=== PATIENT | male | born 1945 | race Caucasian/White ===

== ENCOUNTER 2018-07-02 19:49 | Emergency (ER) | payer MEDICARE ==
[2018-07-02] MEDS ORDERED: NS 0.9% 1000 ML* 1,000 ML IV ONE (21:39)
[2018-07-02] MEDS ORDERED: Morphine INJ* 2 MG/ML 1 ML SYRINGE (TWO MG - NEW SYRINGE VERSION) IV ONE (21:39)
[2018-07-02] MEDS ORDERED: Ondansetron INJ* 2 MG/ML VIAL IV ONE (21:39)
--- NOTE | 2018-07-02 21:50 | ED ---
Abdominal Pain/Male - HPI Summary HPI Summary: This is scribe Mir Dunn documenting for attending Pilar Sr MD. This patient is a 72 year old M presenting to [facility] with a chief complaint of left flank pain. He first felt the pain at 03:00 this morning, and the pain lasted for 3 hours. Patient reports feeling the same pain again today at 18:00 and the pain is now still present. The patient rates the pain 6/10 in severity. Patient reports nausea. Patient denies hematuria and difficulty urinating. He has a PMHx of 4 kidney stones. He had a colonoscopy last year which was negative for diverticulitis. He denies a SHx of abdominal surgery. I, Dr. Sr, personally performed the services described in this documentation as scribed in my presence and it is both accurate and complete. - History of Current Complaint Chief Complaint: EDFlankPain Stated Complaint: LT SIDE FLANK PAIN Time Seen by Provider: 07/02/18 21:34 Hx Obtained From: Patient Onset/Duration: Sudden Onset, Lasting Hours - 3 hours from 03:00-06:00. A second episdoe from 18:00 to present., Still Present Timing: Intermittent - Two episodes: one starting at 03:00 and one starting at 18:00., Lasting Hours - The last episode lasted 3 hours. The current episode has been ongoing for 3 and a half hours. Severity Initially: Moderate Severity Currently: Moderate Pain Intensity: 6 Pain Scale Used: 0-10 Numeric Location: Flank - L flank Associated Signs And Symptoms: Positive: Nausea. Negative: Urinary Symptoms - Denies hematuria. Denies difficulty urinating. - Allergies/Home Medications Allergies/Adverse Reactions: Allergies Allergy/AdvReac Type Severity Reaction Status Date / Time No Known Allergies Allergy Verified 07/02/18 19:53 Home Medications: Home Medications Allopurinol TAB* 20 mg PO DAILY 07/02/18 [History Confirmed 07/02/18] Atorvastatin* 20 mg PO BEDTIME 07/02/18 [History Confirmed 07/02/18] Glipizide 10 mg PO DAILY 07/02/18 [History Confirmed 07/02/18] Lisinopril TAB* 20 mg PO DAILY 07/02/18 [History Confirmed 07/02/18] Metoprolol Succinate 25 mg PO DAILY 07/02/18 [History Confirmed 07/02/18] metFORMIN* 1,500 mg PO DAILY 07/02/18 [History Confirmed 07/02/18] PMH/Surg Hx/FS Hx/Imm Hx Endocrine/Hematology History: Reports: Hx Diabetes GI History: Denies: Hx Diverticulosis History: Reports: Hx Kidney Stones Infectious Disease History: No Infectious Disease History: Denies: Traveled Outside the [place] in Last 30 Days - Family History Known Family History: Positive: Diabetes Negative: Cardiac Disease - Social History Alcohol Use: Daily - 1 drink a day Hx Substance Use: No Smoking Status (MU): Never Smoked Tobacco Have You Smoked in the Last Year: No Review of Systems Positive: Abdominal Pain - L flank pain, Nausea Negative: hematuria, other - Denies difficulty urinating. All Other Systems Reviewed And Are Negative: Yes Physical Exam - Summary Physical Exam Summary: VITAL SIGNS: Reviewed. GENERAL: Patient is a well-developed and nourished MALE who is lying comfortable in the stretcher. Patient is not in any acute respiratory distress. HEAD AND FACE: No signs of trauma. No ecchymosis, hematomas or skull depressions. No sinus tenderness. EYES: PERRLA, EOMI x 2, No injected conjunctiva, no nystagmus. EARS: Hearing grossly intact. Ear canals and tympanic membranes are within normal limits. MOUTH: Oropharynx within normal limits. NECK: Supple, trachea is midline, no adenopathy, no JVD, no carotid bruit, no c- spine tenderness, neck with full ROM. CHEST: Symmetric, no tenderness at palpation LUNGS: Clear to auscultation bilaterally. No wheezing or crackles. CVS: Regular rate and rhythm, S1 and S2 present, no murmurs or gallops appreciated. ABDOMEN: Mild L mid-abdominal tenderness. No signs of distention. No rebound no guarding, and no masses palpated. Bowel sounds are normal. EXTREMITIES: FROM in all major joints, no edema, no cyanosis or clubbing. NEURO: Alert and oriented x 3. No acute neurological deficits. Speech is normal and follows commands. SKIN: Dry and warm Triage Information Reviewed: Yes Vital Signs On Initial Exam: Initial Vitals Temp Pulse Resp BP Pulse Ox 98.8 F 77 20 134/78 96 07/02/18 19:50 07/02/18 19:50 07/02/18 19:50 07/02/18 19:50 07/02/18 19:50 Vital Signs Reviewed: Yes Diagnostics - Vital Signs Vital Signs Temp Pulse Resp BP Pulse Ox 07/02/18 19:50 98.8 F 77 20 134/78 96 - Laboratory Result Diagrams: 07/02/18 21:49 07/02/18 21:49 Lab Statement: Any lab studies that have been ordered have been reviewed, and results considered in the medical decision making process. - CT CT Abd and Pelvis without Intravenous Contrast CT Interpretation Completed By: Radiologist - 1. Mildly obstructing 1 cm calculus left UPJ. 2. Bilateral nonobstructing renal calculi and simple renal cysts. 3. Right renal preoteinaceous/hemorrhagic cyst. 4. Additional incidental findings as described. ED Physician has reviewed this imaging report. Abdominal Pain Fem Course/Dx - Course Assessment/Plan: Patient has no fever. He has been told that if he develops a fever he should come back to the ED. - Diagnoses Provider Diagnoses: Left ureteral stone, Renal colic Discharge - Sign-Out/Discharge Documenting (check all that apply): Patient Departure - D/C - Discharge Plan Condition: Stable Disposition: HOME Prescriptions: Levofloxacin TAB* [Levaquin TAB*] 500 mg PO DAILY #7 tab oxyCODONE/Acetamin 5/325 MG* [Percocet 5/325 TAB*] 1 tab PO Q6H PRN #14 tab MDD 4 PRN Reason: Pain Tamsulosin CAP* [Flomax CAP*] 0.4 mg PO DAILY #7 cap Patient Education Materials: Renal Colic (ED), Ureteral Stones (ED) Referrals: No Primary Care Phys,NOPCP [Primary Care Provider] - (Follow up in 1-2 days.) Ronen Tong MD [Medical Doctor] - (Follow up with Dr. Tong in Urology tomorrow.) Additional Instructions: If you develop any fever, please come back to the ED. Medications have been sent to your pharmacy. Follow up with Urologist Dr. Tong tomorrow and your primary care physician in 1-2 days. RETURN TO THE EMERGENCY DEPARTMENT FOR CHANGING OR WORSENING SYMPTOMS OR DEVELOPMENT OF A FEVER.
[2018-07-02 21:55] LABS: ABS Basophils 0.1 10^3/ul (0-0.2); ABS Eosinophils 0.1 10^3/ul (0-0.6); ABS Lymphocytes 1.7 10^3/ul (1.0-4.8); ABS Monocytes 0.9 10^3/ul (0-0.8); ABS Neutrophils 9.5 10^3/ul (1.5-7.7); ABS Nucleated RBC 0 10^3/ul; Eosinophil % 0.6 % (0-6); Hematocrit 45 % (42-52); Lymphocyte % 13.9 % (25-47); Mean Corpuscular HGB Conc 34 g/dl (31-36); Mean Corpuscular Hemoglobin 31 pg (27-31); Mean Corpuscular Volume 93 fL (80-94); Mean Platelet Volume 9.1 um3 (7.4-10.4); Nucleated Red Blood Cells % 0.1; Platelet Count 194 10^3/ul (150-450); Red Blood Count 4.82 10^6/ul (4.00-5.40); Red Cell Distribution Width 15 % (10.5-15); White Blood Count 12.2 10^3/ul (3.5-10.8)
[2018-07-02 22:03] LABS: INR 0.93 (0.77-1.02)
[2018-07-02 22:19] LABS: EGFR Non-African American 61.6 (>60)
[2018-07-02] MEDS ORDERED: Tamsulosin CAP* 0.4 MG PO ONE (23:03)
[2018-07-02 23:05] LABS: Urine Appearance Cloudy; Urine Blood 2+ (Negative); Urine Color Yellow; Urine Ketones Negative (Negative); Urine Protein 1+(30 mg/dL) (Negative); Urine Red Blood Cell 3+(>10/hpf) (Absent); Urine Specific Gravity 1.026 (1.010-1.030); Urine Urobilinogen Negative (Negative); Urine White Blood Cell 1+(6-10/hpf) (Absent)
[2018-07-02] MEDS ORDERED: Levofloxacin TAB* 500 MG PO ONE (23:11)
[2018-07-03 00:22] VITALS: BP 115/76
--- NOTE | 2018-07-03 09:38 | RAD ---
Indication: Abdominal pain, left flank pain. CT of the abdomen and pelvis was performed without oral or IV contrast. Coronal and sagittal reconstructed images were obtained. No prior study is available for review. Lung bases demonstrate scarring and dependent atelectasis. The heart demonstrates no pericardial effusion. The liver is normal in size. No focal lesions or intrahepatic duct dilatation is noted. The gallbladder demonstrates no calcified gallstones. No pericholecystic fluid or wall thickening is identified. The common duct is not dilated. The pancreas demonstrates no mass or pancreatic duct dilatation. The spleen is normal in size without focal lesions. No adrenal masses are noted. The left kidney demonstrates moderate degree of left hydronephrosis. There is a 10 mm calculus at the right ureteropelvic junction. Other calculi are noted in the lower pole of the left kidney. Nonobstructing calculi are noted in the right kidney. Perinephric infiltration of fat is noted surrounding the left kidney. Left renal cyst is noted. Aorta and inferior vena cava are unremarkable without aneurysmal dilatation. No dilated loops of bowel are noted. The appendix is visualized and is normal. Urinary bladder wall is not thickened, although the bladder is decompressed. The prostate demonstrates some calcifications. Seminal vesicles are unremarkable. The bony structures are grossly unremarkable. No abnormal adenopathy is noted. IMPRESSION: 1. 1 cm calculus in the left ureteropelvic junction with moderate degree of left hydronephrosis. Perinephric infiltration of fat surrounds the left kidney. 2. Bilateral renal cysts are noted. 3. Normal appendix.
== END 2018-07-03 00:21 | disposition home or self-care (01) ==
LOC: ED 19:49
DX: N13.2 Hydronephrosis with renal and ureteral calculous obstruction (principal); N28.1 Cyst of kidney, acquired; R11.0 Nausea; E11.9 Type 2 diabetes mellitus without complications; Z79.84 Long term (current) use of oral hypoglycemic drugs; Z87.442 Personal history of urinary calculi
CPT/HCPCS: 36415; 74176; 80053; 81003; 81015; 82150; 83690; 83735; 85025; 85610; 85730; 86140; 87086; 96374; 96375; 99284; J2270; J2405